=== PATIENT | male | born 1965 | race Caucasian/White ===

== ENCOUNTER 2025-02-24 09:09 | Outpatient (AMB) | payer OTHER, SELFPAY ==
--- NOTE | 2025-02-24 09:25 | A.OFFPC_ITS ---
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 Presenting as a new patient to establish care and for evaluation of a spider bite. The patient reports recurrent spider bites, having been bitten by a recluse spider six times this year. The most recent bite occurred about three days ago and has resulted in fatigue similar to flu symptoms. He has been managing the bites with local wound care, ice and sea salt. The patient has a history of high blood pressure, which he previously attributed to coffee intake. He was recently denied life insurance due to high blood pressure and high triglycerides. The patient reports sleeping only about two hours per day, characterized by difficulty staying asleep rather than falling asleep. He declines sleep medication to remain alert for his partner, who has atrial fibrillation. Past medical history is significant for Lyme disease, which was treated with antibiotics for nine months, leading to severe gastrointestinal issues. He reports an adverse reaction to antibiotics, including a burning sensation in his kidneys, and is therefore hesitant to take them. 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 1. Little interest or pleasure in doing things: not at all 2. Feeling down, depressed, or hopeless: not at all 3. Trouble falling or staying asleep, or sleeping too much: not at all 4. Feeling tired or having little energy: nearly every day 5. Poor appetite or overeating: not at all 6. Feeling bad about yourself - or that you are a failure or have let yourself or your family down: not at all 7. Trouble concentrating on things, such as reading the newspaper or watching television: not at all 8. Moving or speaking so slowly that other people could have noticed. Or the opposite - being so fidgety or restless that you have been moving around a lot more than usual: not at all 9. Thoughts that you would be better off or of hurting yourself in some way: not at all Total score: 3 Depression Screening Interpretation: Negative Depression Screening Done: Yes 46835 - PHQ-9 Billing: Yes Source: Developed by Drs. Jay Sanchez, Amada Kendrick, Loc Rodney and colleagues, with an educational campos from [employer]. Thrive Questionnaire Date Thrive assessed: 02/24/25 I am a: Patient What is your living situation today?: I have a steady place to live Within the past 12 months, did the food you bought not last and you didn't have the money to get more?: Never true Within the past 12 months, did you worry whether your food would run out before you got money to buy more?: Never true Do you have trouble paying for medicines?: No Do you have trouble getting transportation to medical appointments?: No Do you have trouble paying your heating and electricity bill?: No Do you have trouble taking care of your child, family member or friend?: No Do you have trouble with day-to-day activities such as bathing, preparing meals, shopping, managing finances, etc.?: No Are you currently unemployed and looking for a job?: No Are you interested in more education?: I choose not to answer this question Please select the resources that you would like help with: None Currently or been in a relationship where the following occur: No concerns reported THRIVE Score: 0 AUDIT C Alcohol Use Questionnaire (AUDIT-C) 1. How often do you have a drink containing alcohol?: Never Total Score: 0 PIA-7 AMB Questionnaire PIA-7 Date PIA - 7 assessed: 02/24/25 Feeling nervous, anxious, or on edge: 0 = Not at all Not being able to stop or control worryin = Not at all Worrying too much about different things: 0 = Not at all Trouble relaxin = Not at all Being so restless that it is hard to sit still: 0 = Not at all Becoming easily annoyed or irritable: 0 = Not at all Feeling afraid as if something awful might happen: 0 = Not at all Total PIA-7 score (0-4 normal; 5-9 mild; 10-14 moderate; 15-21 severe): 0 Source: Developed by Drs. Jay Sanchez, Amada Kendrick, Loc Rodney and colleagues, with an educational campos from [employer]. Review of Systems Const Denies body aches, Denies chills, Denies fever(s), Denies headache(s) and Denies poor appetite Eyes Reports no additional complaints ENT Denies dizziness and Denies headache(s) Card Denies chest pain, Denies edema, Denies irregular heart rhythm, Denies lightheadedness and Denies dyspnea Resp Denies cough and Denies dyspnea GI Denies nausea and Denies vomiting Reports no additional complaints Musc Reports no additional complaints and Denies abnormal gait Skin/Breast Reports system reviewed and no additional complaints, except as documented Neuro Denies abnormal gait, Denies dizziness and Denies headache(s) Psych Reports no additional complaints Physical exam (Primary Care) Vital Signs: Last Vital Signs Temp 96.9 F 02/24/25 09:27 Pulse 88 02/24/25 09:27 Resp 18 02/24/25 09:27 BP 180/96 H 02/24/25 10:13 Pulse Ox 97 02/24/25 09:27 Oxygen Delivery Method Room Air 02/24/25 09:27 BMI result Body Mass Index 39.3 Tobacco/Smoking Status: Tobacco use Status Tobacco use date assessed 02/24/25 02/24/25 09:35 Patient Tobacco Use Status Never used Tobacco 02/24/25 09:35 e-Cigarette/Vaping Use Never Used 02/24/25 09:35 PHQ-9: PHQ-9 Score PHQ-9: Total score 3 02/24/25 16:02 Depression Screening Interpretation: Negative Thrive Assessment: Date of Thrive Assessment Date Thrive assessed 02/24/25 02/24/25 09:35 Currently or been in a relationship where the following occur: No concerns reported Const General: cooperative, healthy appearing, comfortable and no acute distress Orientation/consciousness: patient oriented x3 HENMT Head: Yes normocephalic Ears: hearing grossly normal bilaterally General nose exam: Normal external nose present Eyes General: appearance normal, both eyes and all related structures Conjunctivae: conjunctivae normal Neck Neck: Yes full ROM and Yes no lymphadenopathy Resp Effort & Inspection: normal respiratory effort Auscultation: clear to auscultation bilaterally, no crackles, no rales, no rhonchi and no wheezes Cardio Rate: regular rate Rhythm: regular rhythm Skin General skin exam: no rashes or lesions noted Full body images: 2 1. non fluctuant Abscess with surrounding erythema Neuro General: patient oriented x3 Gait exam (Neuro): Normal gait present Extrem General: Yes normal to inspection, Yes full ROM and No edema Psych Affect: normal affect Attitude: cooperative Insight: Good insight present (Psych) Judgement: Good judgement present (Psych) Immunizations Tenivac (PF) 5 Lf unit-2 Lf unit/0.5 mL intramuscular syringe Performing Provider: Leeann Mcintosh PA-C [facility] Administered by: Eve Woodson LPN on 02/24/25 10:30 2 Dose Route Admin Location Dispensed Lot Number Expiration Date [facility] Tool Coordinator 0.5 mL IM Left Deltoid 0.5 mL [id number] 08/21/26 98463-629-50 [employer] 2 Total Dispensed Waste 0.5 mL 0 % 2 VIS Given Date VIS Provided VIS Publication Date 02/24/25 Single Vaccine 20 Eligibility Eligibility Date Funding Source Not [facility] Eligible 02/24/25 Private Coding Level of Care Code New Pt Level 4 (91281) Diagnoses Hypertension I10 Cellulitis L03.90 Spider bite T63.301A Obesity (BMI 30-39.9) E66.9 Difficulty sleeping G47.9 Hypertriglyceridemia E78.1 Additional Codes PHQ-9 - 03887 - PHQ-9 Billing: Yes ([id number]) Assessment & Plan Assessment & Plan (1) Hypertension: Code(s): I10 - Essential (primary) hypertension Category: Medical Plan: The patient's blood pressure is significantly elevated at 180/96 mmHg. Given the level of hypertension, it is unlikely to be solely caused by the current infection or stress. The patient agreed to start medication due to the risks associated with sustained high blood pressure. Lisinopril will be initiated at a low dose of 5 mg daily, with a plan to increase to 10 mg after two weeks if well-tolerated, as he has experienced side effects from blood pressure medication in the past. He was advised to start the lisinopril a few days after the antibiotic to distinguish any potential side effects. He was counseled that the most common side effect is a dry cough and to report any signs of an allergic reaction. A follow-up visit is scheduled in two months to recheck his blood pressure. (2) Cellulitis: Code(s): L03.90 - Cellulitis, unspecified Category: Medical Plan: The patient presents with a spider bite from three days prior, which has formed an abscess. Despite his reluctance due to a past negative experience with long- term antibiotics for Lyme disease, he agreed to a course of antibiotics for the current infection. The patient was counseled to monitor the site for signs of worsening infection, such as spreading redness or dark purple discoloration, which would indicate tissue and necessitate immediate surgical evaluation. Per patient he recently had blood work done for life insurance policy and kidney function was normal. I did discuss the importance of drinking plenty of water with this medication and was counseled on side effects. Patient is refusing doxycycline as he has had poor experiences but this in the past and refusing Keflex due to dosing schedule. (3) Spider bite: Code(s): T63.301A - Toxic effect of unspecified spider venom, accidental (unintentional), initial encounter Category: Medical Plan: See above plan. We discussed the importance of insect repellent especially while working outside to avoid further spider bites. (4) Obesity (BMI 30-39.9): Code(s): E66.9 - Obesity, unspecified Category: Medical Plan: Healthy diet and regular exercise is encouraged. (5) Difficulty sleeping: Code(s): G47.9 - Sleep disorder, unspecified Category: Medical Plan: Patient reports difficulty sleeping however he is declining medication management at this time. Discussed possibility of sleep study and plan to speak further at next visit. (6) Hypertriglyceridemia: Code(s): E78.1 - Pure hyperglyceridemia Category: Medical Plan: Reported the some previous blood work. He will bring the most recent results to the office. Avoid foods that are high in cholesterol such as red meat, fried foods, eggs and baked goods. Triglyceride goal of less than 150 and LDL goal of less than 130. Plan We discussed ordering blood work however patient is refusing as he recently had blood work done for his life insurance policy. He agrees to bring these results the office at his earliest convenience. I did discuss with the patient I would still like to have patient complete blood work given recent fatigue related to his spider bites however he would like to hold off at this time. This note was constructed using voice recognition software. While every effort has been made to ensure accuracy and die stamper, still areas may have been included sometimes these areas may affect the content or meeting of the given symptoms. Total time spent caring for the patient today was 30 minutes. This includes time spent before the visit reviewing the chart, time spent during the visit, and time spent after the visit and documentation. Patient was informed and verbally consented to the use of an ambient scribe for clinic note documentation during this visit. Orders: Orders 2 Td Immunization Today Z23 - Encounter for immunization Medications: New 2 sulfamethoxazole-trimethoprim 800-160 mg (Bactrim DS) 1 tab PO BID 14 tabs 0RF lisinopril 5 mg PO DAILY 30 tabs 0RF
[2025-02-24 09:27] VITALS: BP 168/80; PULSE 88; RESP 18; TEMP 36.1; O2SAT 97; BMI 39.3
[2025-02-24 10:13] VITALS: BP 180/96
== END 2025-02-24 10:33 | disposition home or self-care (01) ==
LOC: HO.HMCH 09:09
DX: I10 Essential (primary) hypertension (principal); L03.90 Cellulitis, unspecified; E66.9 Obesity, unspecified; Z68.39 Body mass index [BMI] 39.0-39.9, adult; T63.301A Toxic effect of unspecified spider venom, accidental (unintentional), initial encounter; G47.9 Sleep disorder, unspecified; E78.1 Pure hyperglyceridemia; Z23 Encounter for immunization

== ENCOUNTER → 2025-02-24 09:09 | Outpatient (BNVA) | payer OTHER, SELFPAY | DX: I10 Essential (primary) hypertension (principal); E78.1 Pure hyperglyceridemia; L03.90 Cellulitis, unspecified; E66.9 Obesity, unspecified; D47.9 Neoplasm of uncertain behavior of lymphoid, hematopoietic and related tissue, unspecified; T63.301A Toxic effect of unspecified spider venom, accidental (unintentional), initial encounter; Z23 Encounter for immunization | CPT/HCPCS: 90471; 90714; 96127; 99202 ==